=== PATIENT | female | born 1980 | race Caucasian/White ===

== ENCOUNTER 2019-08-07 13:21 | Emergency (ER) | payer BC ==
[2019-08-07 14:22] LABS: Lymphocytes % 27.6 % (15.3-44.8); MPV 9.1 fL (7.6-11.3)
[2019-08-07 14:23] LABS: Protime INR 0.89
--- NOTE | 2019-08-07 14:46 | RAD REPORT ---
EXAM DESCRIPTION: RAD - Chest Single View - 08/07/2019 2:16 pm CLINICAL HISTORY: DYSPNEA, chest pain and pressure COMPARISON: None TECHNIQUE: AP portable chest image was obtained 08/07/2019 2:16 pm . FINDINGS: Lungs are clear. Heart and vasculature are normal. No measurable pleural effusion and no p neumothorax. No acute bony abnormality seen. No acute aortic findings suspected. IMPRESSION: No acute cardiopulmonary process.
[2019-08-07 14:49] LABS: ALT/SGPT 28 U/L (12-78); AST/SGOT 22 U/L (15-37); Albumin 3.2 g/dL (3.4-5.0); Alkaline Phosphatase 108 U/L (45-117); BUN Blood Urea Nitrogen 13 mg/dL (7-18); Bicarbonate 25 mmol/L (21-32); Bilirubin Direct < 0.1 mg/dL (0-0.2); Bilirubin Total 0.2 mg/dL (0.2-1.0); Glucose Level 100 mg/dL (74-106); Magnesium 1.8 mg/dL (1.8-2.4); NT PRO-BNP 36 pg/mL (<125); Potassium 3.4 mmol/L (3.5-5.1); Protein, Total 8.4 g/dL (6.4-8.2); Sodium Level 138 mmol/L (136-145); Troponin (Emerg Dept Use Only) < 0.02 ng/mL (0.0-0.045)
[2019-08-07] MEDS ORDERED: POTASSIUM CL SA 10 MEQ TAB PO ONE (15:07)
--- NOTE | 2019-08-07 15:24 | ER ---
Nurse's Notes [facility] Name: Josy Giron Age: 39 yrs Sex: Female : 1980 Arrival Date: 08/07/2019 Time: 13:24 Bed 23 Private MD: Diagnosis: Hypertensive Urgency Presentation: 08/06 13:37 Chief complaint: Patient states: "I was at work typing when I started feeling short of vc breath. I went and laid on the couch but it kept getting worse, I started feeling pressure in my head and could feel my heart beating in my neck so I came in. I have been being treated for HTN since January so I was afraid my blood pressure was really high". Coronavirus screen: The patient has NOT traveled to a country currently being monitored by the [facility] within the last 14 days. Proceed with normal triage procedures. The patient has NOT had contact with any known and/or suspected case of coronavirus. Proceed with normal triage procedures. Ebola Screen: No symptoms or risks identified at this time. Initial Sepsis Screen: Does the patient meet any 2 criteria? No. Patient's initial sepsis screen is negative. Does the patient have a suspected source of infection? No. Patient's initial sepsis screen is negative. Risk Assessment: Do you want to hurt yourself or someone else? Patient reports no desire to harm self or others. 13:37 Method Of Arrival: Ambulatory vc 13:37 Acuity: SARA 3 vc 13:47 Onset of symptoms was August 07, 2019 at 12:30. vc Triage Assessment: 13:45 General: Appears in no apparent distress. uncomfortable, Behavior is cooperative, vc appropriate for age, anxious, crying. Respiratory: Reports shortness of breath at rest Onset: The symptoms/episode began/occurred today, the patient has mild shortness of breath. 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 - Social history:: Smoking status: Patient denies any tobacco usage or history of. Screenin:44 Abuse screen: Denies threats or abuse. Nutritional screening: No deficits noted. vc Tuberculosis screening: No symptoms or risk factors identified. Fall Risk None identified. Assessment: 13:44 Pain: Denies pain. Cardiovascular: Rhythm is regular. Respiratory: Airway is patent vc Respiratory effort is even, unlabored, Breath sounds are clear. 13:44 General: Appears in no apparent distress. uncomfortable, Behavior is cooperative, vc appropriate for age, anxious, crying. Neuro: Level of Consciousness is awake, alert, obeys commands, Oriented to person, place, time, situation, Appropriate for age. Derm: Skin is intact, is healthy with good turgor, Skin temperature is warm. 14:35 Reassessment: Patient and/or family updated on plan of care and expected duration. Pain vc level reassessed. Patient is alert, oriented x 3, equal unlabored respirations, skin warm/dry/pink. Patient denies pain at this time. Patient states symptoms have improved. 15:35 Reassessment: Patient and/or family updated on plan of care and expected duration. Pain vc level reassessed. Patient is alert, oriented x 3, equal unlabored respirations, skin warm/dry/pink. Patient denies pain at this time. Patient states feeling better. Patient states symptoms have improved. Vital Signs: 13:37 BP 181 / 125; Pulse 93; Resp 20; Temp 98.2(O); Pulse Ox 100% on R/A; Weight 81.65 kg; vc Height 5 ft. 2 in. (157.48 cm); Pain 0/10; 13:48 BP 138 / 89; vc 14:31 BP 118 / 81; Pulse 82; Pulse Ox 98% on R/A; vc 15:30 BP 129 / 90; Pulse 81; Resp 16; Pulse Ox 99% on R/A; vc 13:37 Body Mass Index 32.92 (81.65 kg, 157.48 cm) vc ED Course: 13:24 Patient arrived in ED. ag5 13:37 Korina Gibson RN is Primary Nurse. vc 13:41 Triage completed. vc 13:46 Larry Park [facility]. jr8 13:46 Mikhail Campbell MD is Attending Physician. jr8 13:46 Arm band placed on. vc 13:47 Patient has correct armband on for positive identification. Placed in gown. Bed in low vc position. conveyor monitor on. Pulse ox on. NIBP on. Warm blanket given. 14:00 Inserted saline lock: 20 gauge in right forearm, using aseptic technique. Blood vc collected. 14:15 X-ray completed. Portable x-ray completed in exam room. Patient tolerated procedure well. 14:16 XRAY Chest (1 view) In Process Unspecified. EDMS 15:50 No provider procedures requiring assistance completed. IV discontinued, intact, vc bleeding controlled, No redness/swelling at site. Pressure dressing applied. Administered Medications: 15:08 Drug: Potassium Chloride 20 mEq Route: PO; vc 16:04 Follow up: Response: No adverse reaction vc Outcome: 15:23 Discharge ordered by . pj 15:51 Discharged to home ambulatory. vc 15:51 Condition: improved 15:51 Discharge instructions given to patient, Instructed on discharge instructions, follow up and referral plans. medication usage, Demonstrated understanding of instructions, follow-up care, medications. 16:03 Patient left the ED. vc Signatures: Dispatcher [employer] EDMS Larry Park PA PA jr8 Matthew Briceño ag5 Korina Gibson, RN RN vc Hannah Reddy
--- NOTE | 2019-08-07 15:24 | EDPHYS ---
Physician Documentation [facility] Name: Josy Giron Age: 39 yrs Sex: Female : 1980 Arrival Date: 08/07/2019 Time: 13:24 Bed 23 Private MD: ED Physician Mikhail Campbell HPI: 08/06 14:46 This 39 yrs old Female presents to ER via Ambulatory with complaints of Shortness Of jr8 Breath, High Blood Pressure, Dizziness. 14:46 The patient has shortness of breath at rest. Onset: The symptoms/episode began/occurred jr8 acutely, today. Duration: The symptoms are continuous. The patient's shortness of breath has no apparent modifying factors. Associated signs and symptoms: Pertinent positives: near syncope. Severity of symptoms: At their worst the symptoms were moderate in the emergency department the symptoms have improved mildly. The patient has not experienced similar symptoms in the past. The patient has not recently seen a physician. Patient stated that she is currently on three different BP medications for uncontrolled HTN. Currently being worked up by cardiology and PCP for secondary HTN. No findings at this time. Stated that she was at work today at her desk when she had sudden onset shortness of breath along with waves of feeling as if she was going to pass out. 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 - Social history:: Smoking status: Patient denies any tobacco usage or history of. ROS: 14:46 Eyes: Negative for injury, pain, redness, and discharge, ENT: Negative for injury, jr8 pain, and discharge, Neck: Negative for injury, pain, and swelling, Cardiovascular: Negative for chest pain, palpitations, and edema, Abdomen/GI: Negative for abdominal pain, nausea, vomiting, diarrhea, and constipation, Back: Negative for injury and pain, MS/Extremity: Negative for injury and deformity, Skin: Negative for injury, rash, and discoloration. 14:46 Respiratory: Positive for shortness of breath, Negative for cough, dyspnea on exertion, hemoptysis, orthopnea, sputum production, wheezing. 14:46 Neuro: Positive for near syncope. Exam: 14:46 Eyes: Pupils equal round and reactive to light, extra-ocular motions intact. Lids and jr8 lashes normal. Conjunctiva and sclera are non-icteric and not injected. Cornea within normal limits. Periorbital areas with no swelling, redness, or edema. ENT: Nares patent. No nasal discharge, no septal abnormalities noted. Tympanic membranes are normal and external auditory canals are clear. Oropharynx with no redness, swelling, or masses, exudates, or evidence of obstruction, uvula midline. Mucous membranes moist. Neck: Trachea midline, no thyromegaly or masses palpated, and no cervical lymphadenopathy. Supple, full range of motion without nuchal rigidity, or vertebral point tenderness. No Meningismus. Cardiovascular: Regular rate and rhythm with a normal S1 and S2. No gallops, murmurs, or rubs. Normal PMI, no JVD. No pulse deficits. Respiratory: Lungs have equal breath sounds bilaterally, clear to auscultation and percussion. No rales, rhonchi or wheezes noted. No increased work of breathing, no retractions or nasal flaring. Abdomen/GI: Soft, non-tender, with normal bowel sounds. No distension or tympany. No guarding or rebound. No evidence of tenderness throughout. Back: No spinal tenderness. No costovertebral tenderness. Full range of motion. Skin: Warm, dry with normal turgor. Normal color with no rashes, no lesions, and no evidence of cellulitis. MS/ Extremity: Pulses equal, no cyanosis. Neurovascular intact. Full, normal range of motion. Neuro: Awake and alert, GCS 15, oriented to person, place, time, and situation. Cranial nerves II-XII grossly intact. Motor strength 5/5 in all extremities. Sensory grossly intact. Cerebellar exam normal. Normal gait. 14:46 ECG was reviewed by the Attending Physician. Vital Signs: 13:37 BP 181 / 125; Pulse 93; Resp 20; Temp 98.2(O); Pulse Ox 100% on R/A; Weight 81.65 kg; vc Height 5 ft. 2 in. (157.48 cm); Pain 0/10; 13:48 BP 138 / 89; vc 14:31 BP 118 / 81; Pulse 82; Pulse Ox 98% on R/A; vc 15:30 BP 129 / 90; Pulse 81; Resp 16; Pulse Ox 99% on R/A; vc 13:37 Body Mass Index 32.92 (81.65 kg, 157.48 cm) vc MDM: 13:46 Patient medically screened. [facility] 15:22 Data reviewed: vital signs, nurses notes, lab test result(s), EKG, radiologic studies, jr8 plain films. Data interpreted: Pulse oximetry: on room air is 98 %. Interpretation: normal. Counseling: I had a detailed discussion with the patient and/or guardian regarding: the historical points, exam findings, and any diagnostic results supporting the discharge/admit diagnosis, lab results, radiology results, the need for outpatient follow up, a family practitioner, to return to the emergency department if symptoms worsen or persist or if there are any questions or concerns that arise at home. Response to treatment: the patient's symptoms have resolved after treatment. 08/06 13:46 Order name: Basic Metabolic Panel; Complete Time: 14:58 08/06 13:46 Order name: CBC with Diff; Complete Time: 14:58 08/06 13:46 Order name: LFT's; Complete Time: 14:58 08/06 13:46 Order name: Magnesium; Complete Time: 14:58 08/06 13:46 Order name: NT PRO-BNP; Complete Time: 14:58 08/06 13:46 Order name: PT-INR; Complete Time: 14:58 08/06 13:46 Order name: Troponin (emerg Dept Use Only); Complete Time: 14:58 08/06 13:46 Order name: XRAY Chest (1 view); Complete Time: 14:58 [facility] 08/06 13:46 Order name: EKG; Complete Time: 13:47 08/06 13:46 Order name: Cardiac monitoring; Complete Time: 13:50 08/06 13:46 Order name: EKG - Nurse/Tech; Complete Time: 14:20 [facility] 08/06 13:46 Order name: IV Saline Lock; Complete Time: 14:20 08/06 13:46 Order name: Labs collected and sent; Complete Time: :08/06 13:46 Order name: O2 Per Protocol; Complete Time: :08/06 13:46 Order name: O2 Sat Monitoring; Complete Time: : EC: Rate is 78 beats/min. Rhythm is regular, Normal Sinus Rhythm. QRS [place] is Normal. NE jr8 interval is normal at 138 msec. QRS interval is normal at 84 msec. QT interval is normal at 456 msec. No Q waves. T waves are Normal. No ST changes noted. Clinical impression: Normal ECG and No evidence of ischemia. Interpreted by me. Reviewed by me. Administered Medications: 15:08 Drug: Potassium Chloride 20 mEq Route: PO; vc 16:04 Follow up: Response: No adverse reaction vc Disposition: 17:17 Co-signature as Attending Physician, Mikhail Campbell MD Did not see or evaluate patient. ps1 Signature for administrative purposes. . Disposition: 08/07/19 15:23 Discharged to Home. Impression: Hypertensive Urgency . - Condition is Stable. - Discharge Instructions: Hypertension. - Medication Reconciliation Form, Thank You Letter, Antibiotic Education, Prescription Opioid Use form. - Follow up: Private Physician; When: 1 - 2 days; Reason: Recheck today's complaints, Continuance of care, Re-evaluation by your physician. - Problem is new. - Symptoms have improved. Signatures: Dispatcher [employer] EDTX Larry Park PA PA jr8 Mikhail Campbell MD MD ps1 Korina Gibson RN RN vc Corrections: (The following items were deleted from the chart) 16:03 15:23 08/07/2019 15:23 Discharged to Home. Impression: Hypertensive Urgency . Condition vc is Stable. Forms are Medication Reconciliation Form, Thank You Letter, Antibiotic Education, Prescription Opioid Use. Follow up: Private Physician; When: 1 - 2 days; Reason: Recheck today's complaints, Continuance of care, Re-evaluation by your physician. Problem is new. Symptoms have improved. jr8
[2019-08-07 16:17] VITALS: TEMP 98.2
[2019-08-07 16:18] VITALS: BP 129/90; O2SAT 99
--- NOTE | 2019-08-07 17:44 | EKG ---
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
== END 2019-08-07 16:03 | disposition home or self-care (01) ==
LOC: ER 13:21
DX: I16.0 Hypertensive urgency (principal); I10 Essential (primary) hypertension
CPT/HCPCS: 36415; 71045; 80048; 80076; 83735; 83880; 84484; 85025; 85610; 93005; 99284